=== PATIENT | female | born 1960 ===

== ENCOUNTER 2018-05-01 05:22 | Inpatient (IN) | payer OTHER ==
[2018-05-01] VITALS (20 sets, daily range): BP systolic 138–170; BP diastolic 71–92
[~2018-05-01] VITALS: Ht 170.2 cm; Wt 113.1 kg
[~2018-05-01 05:22] MED LIST: CYCLOBENZAPRINE10 MG ORAL; FUROSEMIDE20 M1 ORAL; LIPITOR40 MG ORAL; METFORMIN HCL1000 M2 ORAL; NAPROXEN500 M2 ORAL; POTASSIUM ER PO; TRAMADOL; ULTRACET TABLE1 EACH PO
--- NOTE | 2018-05-01 05:50 | NUR ---
IV LR WAS STARTED BY ZAHRA ZHANG RN. NO S/S OF INFILTRATION.
[2018-05-01] MEDS ORDERED: NeoSporin Gu Irrig 1ml Amp IRRIG ONE ×2 (06:25→06:27)
[2018-05-01] MEDS ORDERED: Bacitracin 50000 Units Vial ONE ×2 (06:25→06:27)
[2018-05-01] MEDS ORDERED: Bupivacaine 0.5% 10ml INJ ONE (06:35)
[2018-05-01] MEDS ORDERED: cloNIDine 1000mcg/10ml inj ONE (06:35)
[2018-05-01] MEDS ORDERED: EPINEPHrine 1mg/1ml Amp ONE ×3 (06:41→09:10)
[2018-05-01] MEDS ORDERED: Propofol 200mg/20ml IV ONE (06:42)
[2018-05-01] MEDS ORDERED: Dexamethasone 4mg/ml vial ONE ×3 (06:42→09:15)
[2018-05-01] MEDS ORDERED: Sodium Chloride 10ml vial INJ ONE (06:42)
[2018-05-01] MEDS ORDERED: Lidocaine 1% MPF 10mg/ml 5ml ONE (06:42)
[2018-05-01] MEDS ORDERED: Ketamine 500mg Inj ONE (06:43)
[2018-05-01] MEDS ORDERED: Tranexamic Acid 1,000 MG in NS 55 ML IVPB ONE (06:45)
--- NOTE | 2018-05-01 06:54 | Pre-Procedure Note/Attestation ---
Pre-Procedure Note/Attestation Complete Prior to Procedure Planned Procedure: left Procedure Narrative: Left total knee arthroplasty Indications for Procedure Pre-Operative Diagnosis: left knee arthritis Attestation I attest that I discussed the nature of the procedure; its benefits; risks and complications; and alternatives (and the risks and benefits of such alternatives ), prior to the procedure, with the patient (or the patient's legal assisted sales representative). I attest that, if there was a reasonable possibility of needing a blood transfusion, the patient (or the patient's legal assisted sales representative) was given the [facility] standardized written summary, pursuant to the Aidan Moreno Blood Safety Act ([place] Health and Safety Code # 1645, as amended). I attest that I re-evaluated the patient just prior to the surgery and that there has been no change in the patient's H&P, except as documented below: NONE Dragan Rogers MD May 01, 2018 06:54
[2018-05-01] MEDS ORDERED: ceFAZolin sod 1 GM in NS 55 ML IVPB ONE (07:00)
[2018-05-01] MEDS ORDERED: celeBREX 200mg Cap **SURGERY PATIENTS ONLY ORAL ONE (07:00)
[2018-05-01] MEDS ORDERED: oxyCONTIN 20mg tab ORAL ONE (07:00)
[2018-05-01] MEDS ORDERED: Midazolam 2mg/2ml Inj ONE (07:09)
[2018-05-01] MEDS ORDERED: Ropivacaine 5mg/ml Vial 30ml INJ ONE ×2 (07:23→09:10)
[2018-05-01] MEDS ORDERED: Zemuron 50mg/5ml Inj IV ONE (07:49)
[2018-05-01] MEDS ORDERED: fentaNYL 100 mcg/2 mL IV ONE ×2 (07:52→08:27)
--- NOTE | 2018-05-01 08:22 | Anethesia Preoperative Eval ---
Anesthesia Pre-op PMH/ROS General Date of Evaluation: May 01, 2018 Time of Evaluation: 06:51 Anesthesiologist: Aminata ASA Score: ASA 3 Mallampati Score Class I : Soft palate, uvula, fauces, pillars visible Class II: Soft palate, uvula, fauces visible Class III: Soft palate, base of uvula visible Class IV: Only hard plate visible Mallampati Classification: Class III Surgeon: Sue Diagnosis: L Knee Pain Surgical Procedure: L Knee Total Arthroplasty Anesthesia History: none Family History: no anesthesia problems Allergies: Coded Allergies: No Known Allergies (Unverified , 04/30/18) Medications: see eMAR Patient NPO?: Yes NPO Date: Apr 30, 2018 NPO Time: 2029 Past Medical History Cardiovascular: Reports: HTN, other - HL Pulmonary: Reports: JOSEPH Endocrine: Reports: DM Other: obesity - Morbid BMI 41 PSxH Narrative: C/S X2 Anesthesia Pre-op Phys. Exam Physician Exam Last Vital Signs Date Time Temp Pulse Resp B/P (MAP) Pulse Ox O2 Delivery O2 Flow Rate FiO2 05/01/18 05:55 97.0 67 20 138/85 (102) 97 05/01/18 05:44 Room Air Constitutional: NAD Neurologic: CN 2-12 intact Cardiovascular: RRR Respiratory: CTA Gastrointestinal: S/NT/ND Airway Exam Mallampati Score: Class III MO: limited ROM: limited Teeth: missing, intact Anesthesia Pre-op A/P Risk Assessment & Plan Assessment: ASA 3 Plan: GA, Lumbar plexus Block, Adductor Block Status Change Before Surgery: No Pre-Antibiotics Dru Grams Ancef IV Given Within 1 Hr of Incision: Yes Time Given: 07:41 Aron Coates MD May 01, 2018 08:22
--- NOTE | 2018-05-01 08:23 | Immediate Post-Op Evaluation ---
Immediate Post-Op Evalulation Immediate Post-Op Evalulation Procedure: L Knee Total Arthroplasty Date of Evaluation: May 01, 2018 Time of Evaluation: 10:17 IV Fluids: 1200 LR Blood Products: 0 Estimated Blood Loss: 75 Urinary Output: 160 Blood Pressure Systolic: 165 Blood Pressure Diastolic: 84 Pulse Rate: 95 Respiratory Rate: 16 O2 Sat by Pulse Oximetry: 100 Temperature (Fahrenheit): 97.1 Pain Score (1-10): 3 Nausea: No Vomiting: No Complications 0 Patient Status: awake, reacts, patent, extubated, none Hydration Status: adequate Dru Grams Ancef IV Given Within 1 Hr of Incision: Yes Time Given: 07:41 Aron Coates MD May 01, 2018 08:23
--- NOTE | 2018-05-01 09:48 | Brief Operative Note ---
Immediate Post Operative Note Operative Note Chief Complaint: left knee pain Pre-op Diagnosis: left knee arthritis Procedure: left total knee arthroplasty Post-op Diagnosis: same as pre-op Findings: consistent w/pre-op dx studies Surgeon: md vanessa Anime Artist: cuba olivas Anesthesiologist: md beny Anesthesia: general Specimen: yes Complications: none Condition: stable Fluids: ns Estimated Blood Loss: minimal Drains: none Implant(s) used?: Yes - Xuan Brower May 01, 2018 09:48
[2018-05-01] MEDS ORDERED: LR 1000ml 1,000 ML IVLG SCH (11:07)
[2018-05-01] MEDS ORDERED: Hydromorphone 0.5mg/0.5ml inj IVP PRN (11:15)
[2018-05-01] MEDS ORDERED: DiphenhydrAMINE 50mg/ml Inj IVP PRN (11:15)
[2018-05-01] MEDS ORDERED: fentaNYL 100 mcg/2 mL IV PRN (11:15)
[2018-05-01] MEDS ORDERED: LORazepam Inj 2mg/ml 1ml IV PRN (11:15)
[2018-05-01] MEDS ORDERED: HYDROcodone/Acetamin 7.5/325 tab ORAL PRN ×2 (11:15→13:00)
[2018-05-01] MEDS ORDERED: Meperidine 50mg/ml Inj(FOR RIGORS ONLY) IVP PRN (11:15)
[2018-05-01] MEDS ORDERED: Atropine Sulfate 0.4mg/ml inj IVP PRN (11:15)
[2018-05-01] MEDS ORDERED: Norco 5mg/325mg tab ORAL PRN (11:15)
[2018-05-01] MEDS ORDERED: Midazolam 2mg/2ml Inj IVP PRN (11:15)
[2018-05-01] MEDS ORDERED: oxyCODONE HCL/Acetaminophen 5/325mg ORAL PRN (11:15)
[2018-05-01] MEDS ORDERED: Metoclopramide 10mg/2ml Inj IVP PRN (11:15)
--- NOTE | 2018-05-01 12:00 | NUR ---
NURSE NOTES: PATIENT RECEIVED FROM PACU ON BED TO ROOM 312-1. REPORT RECEIVED VIA PHONE FROM SUSY RN. PATIENT AROUSABLE TO NAME. LLE SURGICAL SITE C/D/I WITH IMMOBILIZER ON. [facility]. ORIENTED PATIENT AND FAMILY TO ROOM. CALL LIGHT WITHIN REACH. WILL CONTINUE TO MONITOR.
[2018-05-01] MEDS ORDERED: HYDROmorphone 1mg/ml Carpuject SUBQ PRN (13:00)
--- NOTE | 2018-05-01 15:00 | Diagnostic Imaging Report ---
Indication: Postop, status post left knee arthroplasty Technique: 2 views left knee Comparison: none Findings: There is a left knee arthroplasty prosthesis in good position. Gas is seen within the soft tissues presumably retained from the surgical exposure. Impression: Postoperative left knee. No unusual features
--- NOTE | 2018-05-01 15:07 | NUR ---
P.T Note: Order for CPM set up to L knee received POD #0 at 0-60 deg. Educated patient and daughter on benefits and proper use of CPM. Audience verbalized understanding. Pt currently tolerating 0-60 well. CPM endorsed to nursing at the end of P.T shift. CPM to be removed after 4-6 hrs of use then place rolled towel under L ankle to facilitate knee extension integrity as well.
--- NOTE | 2018-05-01 15:30 | Operative Note - Dictated ---
DATE OF OPERATION: 05/01/2018 PREOPERATIVE DIAGNOSIS: Left knee end-stage arthritis with varus deformity. POSTOPERATIVE DIAGNOSIS: Left knee end-stage arthritis with varus deformity. PROCEDURE: Left total knee arthroplasty using Laxmi Triathlon System, size 4 femur, size 5 tibia, size 11 mm tibial poly insert and a 33 mm all poly patellar, all cemented. SURGEON: Dragan Rogers M.D. ASSURANCE SOURCING MANAGER: Xuan Krishna PA-C. ANESTHESIOLOGIST: Aron Coates M.D. ANESTHESIA: General LMA anesthesia combined with femoral and adductor block. ESTIMATED BLOOD LOSS: Less than 100 mL. TOURNIQUET TIME: 68 minutes. COMPLICATIONS: None. BRIEF HISTORY: The patient is a pleasant 57-year-old female, who has had ongoing left knee pain. She failed nonoperative treatment. After full discussion of risks and benefits of the surgery and complications associated with it including infection, bleeding, neurovascular complication, possibility of continued pain, possible stiffness, possibility of inability to fully extend or flex, possibility of DVT and PE, possibility of infection requiring resection arthroplasty, she opted for surgical treatment as described above. OPERATIVE PROCEDURE: The patient was brought to the operating room and was placed supine. All pressure points were well padded. Initially, spinal anesthesia was attempted. However, this was unsuccessful. Subsequently, a general LMA anesthesia was induced and a lumbar plexus block was performed. Later on, an adductor and femoral block was performed as well. The left leg was prepped and draped in the usual sterile fashion and was exsanguinated and tourniquet was inflated to 275 mmHg. Standard anterior approach was undertaken to the knee and medial parapatellar arthrotomy was performed. The soft tissues were released. The menisci and ligaments were resected. Intramedullary access into the femur was obtained and intramedullary guide was placed inside the femur. A distal femoral cut was performed in 5 degrees of valgus without any complications. Once this was done, sizing was performed and size 4 appeared to be the right size. The cutting guide was placed in about 3 degrees external rotation and the anterior, posterior, and chamfer cuts were performed without any complications. At this point, a trial femur was applied and slightly lateralized and appeared to be a perfect fit. The PEG holes were drilled. Once this was completed, care was given to the tibia. The tibial extramedullary guide was applied. The anatomical axis was recreated. The slope was recreated. The medial side of tibia was worn out significantly and therefore 2 mm was taken off the medial side. This took about 10 mm off the lateral side. At this point, the flexion-extension gap was checked and appeared to be perfect. There was great ligamentous balance and full extension and 90 degrees of flexion. Once this was completed, sizing of the tibial size were made and size 5 appeared to be the right size. This was applied in 3 degrees external rotation and the central post-drilling and punching was performed. Once this was completed, care was given to the patella. At this point, the patella everted. The patella measured 24 mm. At this point, a 10 mm freehand cut of the patella was performed and left 14 mm patella at the end. At this point, the sizing was performed and 33 mm patellar poly appeared to be the right size. PEG holes were drilled. At this point, the femoral trial, tibial trial, and patellar trial were all applied and 9 mm poly trial was placed in the knee. Range of motion was checked and there was full extension with slight hyperextension and all the way up to 110 degrees of flexion. There was good stability on the varus valgus site. At this point, trial was changed to an 11 mm poly insert and this brought the knee into full extension without hyperextension and good flexion as well as excellent stability at 30 degrees and 45 degrees of range of motion. Once this was completed, all trial components were removed. Knee was irrigated using Simpulse irrigation. The bone was dried. Cement was mixed and the tibial component, femoral component, and patella components were all cemented without any complications. Once this was completed, trialing was performed again with 9 mm and subsequently 11 mm tibial insert trial and an 11 mm appeared to be the best fit with full extension and excellent stability and full flexion. At this point, all wounds were thoroughly irrigated using copious amount of fluid. The actual 11 mm ultra cross-linked polyethylene was then applied and locked in and the stability was checked and rechecked. Once this was assured, all wounds were thoroughly irrigated again with Simpulse irrigation. The tourniquet was deflated. There was minimal bleeding. The extensor mechanism was closed using #1 Vicryl suture. The subcutaneous tissue was closed using 2-0 Vicryl suture. The skin was closed using 3-0 Monocryl suture. Dermabond was applied. The patient tolerated procedure well without complication. The patient was taken to the recovery room in stable condition. All lap counts and instrument counts were correct. Dragan Rogers M.D. DR: LACY JOB#: [id number] CC: TALI
[2018-05-01] MEDS: Docusate 100mg cap ORAL SCH ×2 (15:32→17:41)
[2018-05-01] MEDS: D5 1/2NS w/KCl 20mEq 1,000 ML IV SCH (15:33)
[2018-05-01] MEDS: ceFAZolin sod 1 GM in D5W 55 ML IV SCH ×2 (15:33→23:59)
--- NOTE | 2018-05-01 17:10 | NUR ---
NURSE NOTES: PLACED CALL TO DR. MURILLO. WILL SEE PATIENT THIS EVENING.
--- NOTE | 2018-05-01 17:58 | NUR ---
NURSE NOTES: PATIENT DOING WELL. TOLERATING CPM UP TO 60 DEGREES. DENIES PAIN. SURGICAL SITE C/D/I. CMS WNL. CALL LIGHT WITHIN REACH.
--- NOTE | 2018-05-01 19:32 | Consultation ---
History of Present Illness General Date patient seen: May 01, 2018 Time patient seen: 19:30 Present Illness Allergies: Coded Allergies: No Known Allergies (Unverified , 04/30/18) Medication History Scheduled Atorvastatin Calcium* (Lipitor*), 40 MG ORAL BEDTIME, (Reported) Cyclobenzaprine Hcl* (Flexeril*), 10 MG ORAL BID, (Reported) Furosemide* (Lasix*), 20 MG ORAL DAILY, (Reported) Metformin Hcl (Metformin Hcl Er), 1,000 MG ORAL BID, (Reported) Naproxen* (Naproxen*), 500 MG ORAL TWICE A DAY, (Reported) Tramadol Hcl/Acetaminophen (Ultracet Tablet), 2 TAB PO Q4-6 HRS, (Reported) [Potassium Er], 1 TAB PO DA, (Reported) Patient History Healthcare decision maker NOEMÍ DIAZ-DAUGHTER Resuscitation status Full Code Advanced Directive on File Review of Systems Constitutional: Reports: no symptoms Eye: Reports: no symptoms ENT: Reports: no symptoms Respiratory: Reports: no symptoms Gastrointestinal: Reports: no symptoms Physical Exam General Appearance: WD/WN, alert HEENT: no JVD Neck: non-tender Respiratory/Chest: lungs clear Cardiovascular/Chest: normal rate, regular rhythm Abdomen: soft Last 24 Hour Vital Signs Date Time Temp Pulse Resp B/P (MAP) Pulse Ox O2 Delivery O2 Flow Rate FiO2 05/01/18 16:00 97.7 76 18 148/89 (108) 96 05/01/18 14:29 98.6 89 18 156/91 (112) 98 05/01/18 13:25 98.7 98 18 157/90 (112) 98 05/01/18 12:25 97.8 81 16 157/92 (113) 99 05/01/18 12:00 Nasal Cannula 3.0 05/01/18 11:55 98.1 89 16 157/90 (112) 98 05/01/18 11:50 74 18 142/74 100 Nasal Cannula 3 05/01/18 11:40 72 17 148/72 98 Nasal Cannula 3 05/01/18 11:20 76 19 152/78 100 Nasal Cannula 3 05/01/18 11:17 73 18 143/79 100 Nasal Cannula 3 05/01/18 11:10 97.4 78 17 150/89 100 Nasal Cannula 3 05/01/18 11:00 83 20 165/76 100 Nasal Cannula 3 05/01/18 10:50 73 18 156/76 100 Nasal Cannula 3 05/01/18 10:40 78 17 151/78 100 Simple Mask 6 05/01/18 10:30 79 18 159/82 100 Simple Mask 6 05/01/18 10:25 83 17 160/83 99 Simple Mask 6 05/01/18 10:15 82 16 170/71 99 Simple Mask 6 05/01/18 10:10 88 17 159/87 99 Simple Mask 6 05/01/18 10:06 97.1 95 16 165/84 100 Simple Mask 6 05/01/18 10:06 95 16 100 05/01/18 05:55 97.0 67 20 138/85 (102) 97 05/01/18 05:44 Room Air Height (Feet): 5 Height (Inches): 7.00 Weight (Pounds): 250 Medications Current Medications Medications (Trade) Dose Ordered Sig/Ryan Route PRN Reason Start Time Stop Time Status Last Admin Dose Admin Acetaminophen (Tylenol) 650 mg Q4H PRN ORAL temp>100.2 or headache 05/01/18 13:00 05/31/18 12:59 Acetaminophen/ Hydrocodone Bitart ([place] 5/325) 2 tab Q4H PRN ORAL pain scores 4-10 05/01/18 13:00 05/08/18 12:59 Acetaminophen/ Hydrocodone Bitart ([place] 7.5/325) 1 tab Q4H PRN ORAL Mild Pain (Pain Scale 1-3) 05/01/18 13:00 05/08/18 12:59 Cefazolin Sodium 1 gm/Dextrose 55 ml @ 110 mls/hr Q8H IV 05/01/18 15:30 05/01/18 23:59 05/01/18 15:33 Celecoxib (CeleBREX) 200 mg DAILY ORAL 05/02/18 09:00 06/01/18 08:59 Dextrose/ Electrolytes 1,000 ml @ 75 mls/hr [id number] IV 05/01/18 14:00 05/31/18 13:59 05/01/18 15:33 Docusate Sodium (Colace) 100 mg THREE TIMES A DAY ORAL 05/01/18 13:00 05/31/18 12:59 05/01/18 17:41 Enoxaparin Sodium (Lovenox) 30 mg EVERY 12 HOURS SUBQ 05/01/18 21:00 05/31/18 20:59 Ferrous Sulfate (Feosol) 325 mg THREE TIMES A DAY ORAL 05/01/18 13:00 05/31/18 12:59 05/01/18 17:41 Hydromorphone HCl (Dilaudid) 1 mg Q4H PRN SUBQ Mild Pain (Pain Scale 1-3) 05/01/18 13:00 05/08/18 12:59 Hydromorphone HCl (Dilaudid) 2 mg Q3H PRN SUBQ Severe Pain (Pain Scale 7-10) 05/01/18 13:00 05/08/18 12:59 Hydromorphone HCl (Dilaudid) 2 mg Q4H PRN SUBQ Moderate Pain (Pain Scale 4-6) 05/01/18 13:00 05/08/18 12:59 Magnesium Hydroxide (Mom) 30 ml DAILYPRN PRN ORAL Constipation 05/01/18 13:00 05/31/18 12:59 Ondansetron HCl (Zofran) 4 mg Q6H PRN IVP Nausea & Vomiting 05/01/18 13:00 05/31/18 12:59 Oxycodone HCl (OxyCONTIN) 20 mg EVERY 12 HOURS ORAL 05/01/18 21:00 05/08/18 20:59 Temazepam (Restoril) 7.5 mg HSPRN PRN ORAL Insomnia 05/01/18 21:00 05/08/18 20:59 Assessment/Plan Status Narrative thisis a 57 yeart old female with hypertenison diabetes hyperlipdi is s/p total knee arthroplasty Assessment/Plan expected periopertaive blood loss monitor cbc dvt rpophyalxis perio[peratie antibiotic prophyalxis [pain control dm accucheck ada diet sliding scale resuem meds check bmp Sanju Paz MD May 01, 2018 19:32
--- NOTE | 2018-05-01 19:55 | NUR ---
HAND-OFF: Report given to BEATRIZ BA RN.
[2018-05-01] MEDS: oxyCONTIN 20mg tab ORAL SCH (21:32)
[2018-05-01] MEDS: Enoxaparin 30mg Inj SUBQ SCH (21:33)
[2018-05-01] MEDS: NovoLOG Insulin Flexpen SUBQ SCH (22:05)
[2018-05-02 00:42] VITALS: BP 142/84
[2018-05-02] MEDS: D5 1/2NS w/KCl 20mEq 1,000 ML IV SCH ×2 (03:43→17:16)
[2018-05-02 04:35] VITALS: BP 133/84
[2018-05-02] MEDS: metFORMIN 500mg tab ORAL SCH ×3 (06:22→17:16)
[2018-05-02] MEDS: NovoLOG Insulin Flexpen SUBQ SCH ×4 (06:23→20:40)
--- NOTE | 2018-05-02 07:45 | NUR ---
HAND-OFF: Report given to KRYSTINA Nance. Patient awake in bed, no s/s of acute distress.
--- NOTE | 2018-05-02 07:46 | NUR ---
NURSE NOTES: Received patient awake alert and oriented, sitting comfortably in bed. IV site at right hand, 20 gauge, infusing D5 1/2NS with 20mEq KCl. Nasal cannula at 3L/min. Bed at lowest level with 2 side rails up. Call light within reach. In no apparent distress at this time. Will continue to monitor.
[2018-05-02 08:00] VITALS: BP 137/83
--- NOTE | 2018-05-02 08:20 | Orthopedic Progress Note ---
Orthopedic - Progress Note Subjective Symptoms: improved Objective Laboratory Tests Test 05/02/18 07:12 White Blood Count Pending Red Blood Count Pending Hemoglobin Pending Hematocrit Pending Mean Corpuscular Volume Pending Mean Corpuscular Hemoglobin Pending Mean Corpuscular Hemoglobin Concent Pending Red Cell Distribution Width Pending Platelet Count Pending Mean Platelet Volume Pending Neutrophils (%) (Auto) Pending Lymphocytes (%) (Auto) Pending Monocytes (%) (Auto) Pending Eosinophils (%) (Auto) Pending Basophils (%) (Auto) Pending Last 24 Hour Vital Signs Date Time Temp Pulse Resp B/P (MAP) Pulse Ox O2 Delivery O2 Flow Rate FiO2 05/02/18 04:35 98.8 87 20 133/84 (100) 98 05/02/18 00:42 98.6 76 20 142/84 (103) 97 05/01/18 22:02 98.8 05/01/18 21:00 Nasal Cannula 3.0 05/01/18 20:47 98.8 82 19 148/88 (108) 98 05/01/18 16:00 97.7 76 18 148/89 (108) 96 05/01/18 14:29 98.6 89 18 156/91 (112) 98 05/01/18 13:25 98.7 98 18 157/90 (112) 98 05/01/18 12:25 97.8 81 16 157/92 (113) 99 05/01/18 12:00 Nasal Cannula 3.0 05/01/18 11:55 98.1 89 16 157/90 (112) 98 05/01/18 11:50 74 18 142/74 100 Nasal Cannula 3 05/01/18 11:40 72 17 148/72 98 Nasal Cannula 3 05/01/18 11:20 76 19 152/78 100 Nasal Cannula 3 05/01/18 11:17 73 18 143/79 100 Nasal Cannula 3 05/01/18 11:10 97.4 78 17 150/89 100 Nasal Cannula 3 05/01/18 11:00 83 20 165/76 100 Nasal Cannula 3 05/01/18 10:50 73 18 156/76 100 Nasal Cannula 3 05/01/18 10:40 78 17 151/78 100 Simple Mask 6 05/01/18 10:30 79 18 159/82 100 Simple Mask 6 05/01/18 10:25 83 17 160/83 99 Simple Mask 6 05/01/18 10:15 82 16 170/71 99 Simple Mask 6 05/01/18 10:10 88 17 159/87 99 Simple Mask 6 05/01/18 10:06 97.1 95 16 165/84 100 Simple Mask 6 05/01/18 10:06 95 16 100 Intake and Output 05/01/18 05/02/18 19:00 07:00 Intake Total 2017.5 ml 465 ml Output Total 190 ml Balance 1827.5 ml 465 ml Intake Oral 240 ml IV Total 2017.5 ml 225 ml Output Urine Total 160 ml Estimated Blood Loss 30 ml Laboratory Tests Test 05/02/18 07:12 White Blood Count Pending Red Blood Count Pending Hemoglobin Pending Hematocrit Pending Mean Corpuscular Volume Pending Mean Corpuscular Hemoglobin Pending Mean Corpuscular Hemoglobin Concent Pending Red Cell Distribution Width Pending Platelet Count Pending Mean Platelet Volume Pending Neutrophils (%) (Auto) Pending Lymphocytes (%) (Auto) Pending Monocytes (%) (Auto) Pending Eosinophils (%) (Auto) Pending Basophils (%) (Auto) Pending Wound: clean, dry, intact Drains: none Neuro Status: normal Vascular Status: normal Additional Comments xray excellent Assessment Post-op Diagnosis POD 1 Procedure Performed left total knee arthroplasty Plan Plan: PT, discharge plan - to SNF on Monday, other - Today's labs pending. will follow Xuan Krishna May 02, 2018 08:20
[2018-05-02 08:24] LABS: BASOPHILS % (AUTO) 0.4 % (0.0-2.0); HEMATOCRIT 37.4 % (37.0-47.0); HEMOGLOBIN 12.3 G/DL (12.0-16.0); LYMPHOCYTES % (AUTO) 16.5 % (20.0-45.0); MEAN CORPUSCULAR VOLUME 99 FL (80-99); MONOCYTES % (AUTO) 9.5 % (1.0-10.0); NEUTROPHILS % (AUTO) 73.6 % (45.0-75.0); PLATELET COUNT 255 K/UL (150-450); RED BLOOD COUNT 3.76 M/UL (4.20-5.40); RED CELL DISTRIBUTION WIDTH 13.8 % (11.6-14.8); WHITE BLOOD COUNT 17.9 K/UL (4.8-10.8)
[2018-05-02] MEDS: Enoxaparin 30mg Inj SUBQ SCH ×2 (08:49→20:41)
[2018-05-02] MEDS: Docusate 100mg cap ORAL SCH ×3 (08:50→17:16)
[2018-05-02] MEDS: celeBREX 200mg Cap **SURGERY PATIENTS ONLY ORAL SCH (08:50)
[2018-05-02] MEDS: oxyCONTIN 20mg tab ORAL SCH ×2 (08:50→22:09)
--- NOTE | 2018-05-02 09:28 | 48 Hour Post Anesthesia Eval ---
Post Anesthesia Evaluation Procedure: L Knee Total Arthroplasty Date of Evaluation: May 02, 2018 Airway: patent Nausea: No Vomiting: No Pain Intensity: 0 Hydration Status: adequate Cardiopulmonary Status: at baseline Mental Status/LOC: patient returned to baseline Post-Anesthesia Complications: 0 Follow-up care needed: N/A - further care as per primary team Jennifer Burt MD May 02, 2018 09:28
[2018-05-02] MEDS ORDERED: Tubing IV Secondary IV ONE (11:00)
--- NOTE | 2018-05-02 11:45 | NUR ---
P.T Note: P.T evaluation completed and treatment initiated per TKR protocol. Please refer to P.T evaluation for current functional status. Skilled P.T service is warranted to improve L knee ROM, strength, safety and mobility independence following TKR. Recommend FWW, 3 n 1 commode and SNF for short term rehab. at [place]. Thank you for this referral.
[2018-05-02 11:49] VITALS: BP 138/81
[2018-05-02] MEDS: Norco 5mg/325mg tab ORAL PRN (15:10)
[2018-05-02 16:00] VITALS: BP 141/80
--- NOTE | 2018-05-02 19:37 | NUR ---
HAND-OFF: Report given to KRYSTINA Quiñones.
--- NOTE | 2018-05-02 19:37 | NUR ---
HAND-OFF: Report given to KRYSTINA Blanton.
[2018-05-02 20:00] VITALS: BP 151/78
--- NOTE | 2018-05-02 20:00 | NUR ---
NURSE NOTES: Patient received in bed, awake oriented. C/o pain but refused to take PRN pain medications. Per patient, only oxycontin works (as scheduled). On CPM machine 0-60 tolerating well. L knee dressing dry and intact. IV is intact and patent. Call light in reach. Will continue to monitor.
--- NOTE | 2018-05-02 20:15 | NUR ---
NURSE NOTES: Patient offered ice pack, patient refused at this time. Will reattempt.
--- NOTE | 2018-05-02 20:30 | NUR ---
NURSE NOTES: Patient noted with 100.7 oral temp, tylenol to be administered. Will continue to monitor.
--- NOTE | 2018-05-02 20:32 | NUR ---
CASE MANAGEMENT: REVIEW 57/F DIRECT ADMIT FROM HOME CC: LEFT KNEE PAIN SI: LEFT KNEE ARTHRITIS LEFT KNEE TOTAL ARTHROPLASTY 05/01 T 97.1 HR 95 RR 16 BP 165/84 SAT 100% SIMPLE MASK 6.0 IS: VERSED IV X1 DURACLON X1 NEOMYCIN IRRIG X1 ANCEF IV X1 CELEBREX PO X1 OXYCONTIN PO X1 PATIENT ADMITTED TO MED/SURG 05/01/2018 DCP: PATIENT IS FROM HOME
--- NOTE | 2018-05-02 21:40 | NUR ---
NURSE NOTES: Patient assisted to ambulate to the bathroom with walker. Offered to place knee immobilizer to patient when ambulating but patient refused, stating that she ambulated earlier in AM without the immobilizer. Explained importance but patient still refused. Patient assisted back to bed safely after voiding.
[2018-05-03] VITALS: BP 165/83
[2018-05-03 04:00] VITALS: BP 148/81
[2018-05-03] MEDS: D5 1/2NS w/KCl 20mEq 1,000 ML IV SCH (06:07)
[2018-05-03] MEDS: metFORMIN 500mg tab ORAL SCH ×3 (06:07→17:16)
[2018-05-03] MEDS: NovoLOG Insulin Flexpen SUBQ SCH ×4 (06:09→20:03)
--- NOTE | 2018-05-03 07:13 | NUR ---
HAND-OFF: Report given to Hawa Hernandez RN.
[2018-05-03 07:18] LABS: BASOPHILS % (AUTO) 0.7 % (0.0-2.0); EOSINOPHILS % (AUTO) 0.1 % (0.0-3.0); HEMATOCRIT 33.8 % (37.0-47.0); HEMOGLOBIN 11.2 G/DL (12.0-16.0); LYMPHOCYTES % (AUTO) 15.5 % (20.0-45.0); MEAN CORPUSCULAR VOLUME 99 FL (80-99); MONOCYTES % (AUTO) 10.2 % (1.0-10.0); NEUTROPHILS % (AUTO) 73.6 % (45.0-75.0); PLATELET COUNT 207 K/UL (150-450); RED BLOOD COUNT 3.42 M/UL (4.20-5.40); RED CELL DISTRIBUTION WIDTH 13.8 % (11.6-14.8); WHITE BLOOD COUNT 11.7 K/UL (4.8-10.8)
--- NOTE | 2018-05-03 07:40 | NUR ---
NURSE NOTES: Pt in bed a/o x 4 in no acute distress. Pt c/o pain to L knee 11/10. Left knee has dressing, STEPHAN wrap and compression stocking in place. Dressing D/C/I. Left pedal pulses 2+, pt has intact sensation to left LE, able to wiggle toes and flex foot. Patent IV to R hand. Pt left in bed in low position, call light within reach, bed locked, ice pack to left knee. Discussed pain management plan for today. Will continue to monitor.
[2018-05-03 08:00] VITALS: BP 147/80
[2018-05-03] MEDS: oxyCONTIN 20mg tab ORAL SCH ×3 (08:11→17:17)
[2018-05-03] MEDS: celeBREX 200mg Cap **SURGERY PATIENTS ONLY ORAL SCH (08:11)
[2018-05-03] MEDS: Docusate 100mg cap ORAL SCH ×3 (08:12→17:16)
[2018-05-03] MEDS: Enoxaparin 30mg Inj SUBQ SCH ×2 (08:15→20:04)
--- NOTE | 2018-05-03 08:26 | Orthopedic Progress Note ---
Orthopedic - Progress Note Subjective Symptoms: c/o post-op knee pain Additional Comments patient has some nausea. Controlled with Zofran. Objective Last 24 Hour Vital Signs Date Time Temp Pulse Resp B/P (MAP) Pulse Ox O2 Delivery O2 Flow Rate FiO2 05/03/18 04:00 99.0 98 18 148/81 (103) 95 05/03/18 00:00 99.6 89 18 165/83 (110) 96 05/02/18 21:21 99.9 05/02/18 21:00 Room Air 05/02/18 20:00 100.7 92 19 151/78 (102) 96 05/02/18 16:00 97.8 81 20 141/80 (100) 98 05/02/18 15:40 99.0 05/02/18 11:49 99.0 72 19 138/81 (100) 97 05/02/18 11:15 98.8 05/02/18 09:20 98.8 05/02/18 09:00 Nasal Cannula 3.0 Intake and Output 05/02/18 05/03/18 19:00 07:00 Intake Total 435 ml 1185 ml Output Total 400 ml Balance 35 ml 1185 ml Intake Oral 360 ml 360 ml IV Total 75 ml 825 ml Output Urine Total 400 ml # Voids 1 2 Laboratory Tests Test 05/03/18 05:35 White Blood Count 11.7 K/UL (4.8-10.8) H Red Blood Count 3.42 M/UL (4.20-5.40) L Hemoglobin 11.2 G/DL (12.0-16.0) L Hematocrit 33.8 % (37.0-47.0) L Mean Corpuscular Volume 99 FL (80-99) Mean Corpuscular Hemoglobin 32.8 PG (27.0-31.0) H Mean Corpuscular Hemoglobin Concent 33.2 G/DL (32.0-36.0) Red Cell Distribution Width 13.8 % (11.6-14.8) Platelet Count 207 K/UL (150-450) Mean Platelet Volume 7.6 FL (6.5-10.1) Neutrophils (%) (Auto) 73.6 % (45.0-75.0) Lymphocytes (%) (Auto) 15.5 % (20.0-45.0) L Monocytes (%) (Auto) 10.2 % (1.0-10.0) H Eosinophils (%) (Auto) 0.1 % (0.0-3.0) Basophils (%) (Auto) 0.7 % (0.0-2.0) Wound: clean, dry, intact Drains: none Neuro Status: normal Vascular Status: normal Assessment Post-op Diagnosis POD#2 s/p Left TKA Plan Plan: PT, pain management, discharge plan Additional Comments dressing Changes today D/C IV fluids. Approved for transfer tomorrow. Dragan Rogers MD May 03, 2018 08:26
--- NOTE | 2018-05-03 08:33 | NUR ---
Dr. Montano in to see pt today, gave new orders to DC fluids and change dressing change today, refer to orders.
[2018-05-03 12:09] VITALS: BP 140/87
[2018-05-03 15:48] VITALS: BP 148/82
--- NOTE | 2018-05-03 16:00 | NUR ---
@1205 pedal pulses 2+, intact sensation, pt able to flex foot and wiggle toes, warm extremity. @1600 pedal pulses 2+, intact sensation, pt able to flex foot/wiggle toes, extremity is warm.
--- NOTE | 2018-05-03 18:16 | NUR ---
WARP TYING MACHINE TENDER NOTES SPOKE WITH [employer] NOT CONTRACTED WITH [facility]. RECEIVED CONTRACTED LIST. FAXED INQUIRY WILL FOLLOW UP IN AM.
--- NOTE | 2018-05-03 18:52 | NUR ---
Notified Dr. Paz of pts temp 101.0 PO, initially 100.8 PO. Gave Tylenol 650mg + cooling measures with no success to bring down temperature. Received new orders from , will implement. Refer to orders.
--- NOTE | 2018-05-03 19:15 | NUR ---
NURSE NOTES: Report given to Yovana RN, pt a/o x 4. Pt left in bed in low position, call light within reach, skid socks on, ice packs under axillas and back in place. Left knee has ice packs at site, walker at bedside.
--- NOTE | 2018-05-03 19:40 | NUR ---
NURSE NOTES: Received report from KRYSTINA Ruth.
[2018-05-03 20:00] VITALS: BP 154/83
[2018-05-03] MEDS: Norco 5mg/325mg tab ORAL PRN (20:01)
--- NOTE | 2018-05-03 21:01 | Cardiology Progress Note ---
Assessment/Plan Status Narrative patient is s/p toatl knee arthroplasty denies nacy ches tpain otr sob has 30 stairs at home Assessment/Plan s/p tkr perioperative blood loss postop dvt prophyalxis had antibiotic prophyalxis paincontrol monitor le pt ot dc planning to go to e[facility]. Subjective Cardiovascular: Reports: no symptoms Respiratory: Reports: no symptoms Gastrointestinal/Abdominal: Reports: no symptoms Objective Last 24 Hour Vital Signs Date Time Temp Pulse Resp B/P (MAP) Pulse Ox O2 Delivery O2 Flow Rate FiO2 05/03/18 17:47 100.8 05/03/18 16:45 101.0 05/03/18 16:25 100.3 05/03/18 16:15 100.2 05/03/18 15:48 100.8 89 18 148/82 (104) 98 05/03/18 12:09 99.2 95 19 140/87 (104) 97 05/03/18 09:00 Room Air 05/03/18 08:00 100.2 91 19 147/80 (102) 96 05/03/18 04:00 99.0 98 18 148/81 (103) 95 05/03/18 00:00 99.6 89 18 165/83 (110) 96 05/02/18 21:00 Room Air General Appearance: WD/WN EENT: PERRL/EOMI Neck: no JVD Cardiovascular: normal rate, regular rhythm Respiratory/Chest: lungs clear Abdomen: soft, no organomegaly Intake and Output 05/02/18 05/03/18 19:00 07:00 Intake Total 435 ml 1185 ml Output Total 400 ml Balance 35 ml 1185 ml Intake Oral 360 ml 360 ml IV Total 75 ml 825 ml Output Urine Total 400 ml # Voids 1 2 Laboratory Tests Test 05/03/18 05:35 White Blood Count 11.7 K/UL (4.8-10.8) H Red Blood Count 3.42 M/UL (4.20-5.40) L Hemoglobin 11.2 G/DL (12.0-16.0) L Hematocrit 33.8 % (37.0-47.0) L Mean Corpuscular Volume 99 FL (80-99) Mean Corpuscular Hemoglobin 32.8 PG (27.0-31.0) H Mean Corpuscular Hemoglobin Concent 33.2 G/DL (32.0-36.0) Red Cell Distribution Width 13.8 % (11.6-14.8) Platelet Count 207 K/UL (150-450) Mean Platelet Volume 7.6 FL (6.5-10.1) Neutrophils (%) (Auto) 73.6 % (45.0-75.0) Lymphocytes (%) (Auto) 15.5 % (20.0-45.0) L Monocytes (%) (Auto) 10.2 % (1.0-10.0) H Eosinophils (%) (Auto) 0.1 % (0.0-3.0) Basophils (%) (Auto) 0.7 % (0.0-2.0) Microbiology Date/Time Source Procedure Growth Status 05/01/18 06:00 Nasal Nares MRSA Culture - Final NO METHICILLIN RESISTANT STAPH AUREUS... Complete Sanju Paz MD May 03, 2018 21:01
--- NOTE | 2018-05-03 21:32 | NUR ---
NURSE NOTES: Patient in bed, aox4. VSS, no shortness of breath. [place] given for pain of 7/10. Left leg dressing clean, dry, intact. IV site intact and patent. Due meds given, needs attended to. Bed low, call light within reach.
--- NOTE | 2018-05-03 22:25 | NUR ---
NURSE NOTES: urine sample collected, sent to lab.
[2018-05-03 23:58] LABS: BILIRUBIN, URINE NEGATIVE (NEGATIVE); COLOR,URINE PALE YELLOW; GLUCOSE, URINE (UA) NEGATIVE (NEGATIVE); KETONES,URINE NEGATIVE (NEGATIVE); NITRITE,URINE NEGATIVE (NEGATIVE); PH,URINE 6 (4.5-8.0); PROTEIN,URINE 2+ (NEGATIVE); UROBILINOGEN,URINE NORMAL MG/DL (0.0-1.0)
[2018-05-04] VITALS: BP 148/82
[2018-05-04 00:17] LABS: APPEARANCE,URINE SLIGHTLY CLOUDY; LEUKOCYTE ESTERASE ,URINE 2+ (NEGATIVE)
[2018-05-04 04:00] VITALS: BP 150/94
[2018-05-04] MEDS: metFORMIN 500mg tab ORAL SCH ×3 (06:39→16:46)
[2018-05-04] MEDS: Norco 5mg/325mg tab ORAL PRN ×2 (06:39→21:08)
[2018-05-04] MEDS: NovoLOG Insulin Flexpen SUBQ SCH ×4 (06:40→21:08)
[2018-05-04 07:04] LABS: BASOPHILS % (AUTO) 0.7 % (0.0-2.0); EOSINOPHILS % (AUTO) 1.4 % (0.0-3.0); HEMATOCRIT 33.9 % (37.0-47.0); HEMOGLOBIN 11.2 G/DL (12.0-16.0); LYMPHOCYTES % (AUTO) 17.5 % (20.0-45.0); MEAN CORPUSCULAR VOLUME 98 FL (80-99); MONOCYTES % (AUTO) 9.6 % (1.0-10.0); NEUTROPHILS % (AUTO) 70.8 % (45.0-75.0); PLATELET COUNT 221 K/UL (150-450); RED BLOOD COUNT 3.45 M/UL (4.20-5.40); RED CELL DISTRIBUTION WIDTH 13.7 % (11.6-14.8); WHITE BLOOD COUNT 10.4 K/UL (4.8-10.8)
--- NOTE | 2018-05-04 07:49 | NUR ---
NURSE NOTES: Pt in bed a/o x 4 in no acute distress. Patent RAC IV SL. Left knee has dressing in place, STEPHAN bandage, and compression hose up to thigh, site D/C/I. Left foot pedal pulses 2+, sensation intact, pt able to flex foot and wiggle toes. Pt c/o 7/10 pain to left knee. Discussed with pt pain management control plan, medications, and discharge plan to rehab facility, board updated. Pt left in bed in low position, call light within reach, skid socks on, walker at bedside, bed locked, right leg SCD on. Will continue to monitor.
--- NOTE | 2018-05-04 07:52 | NUR ---
HAND-OFF: Report given to KRYSTINA Ruth. Patient stable.
[2018-05-04 07:59] VITALS: BP 144/81
--- NOTE | 2018-05-04 08:04 | Orthopedic Progress Note ---
Orthopedic - Progress Note Subjective Symptoms: improved Objective Laboratory Tests Test 05/03/18 22:00 05/04/18 05:35 Urine Color Pale yellow Urine Appearance Slightly cloudy Urine pH 6 (4.5-8.0) Urine Specific [place] 1.010 (1.005-1.035) Urine Protein 2+ (NEGATIVE) H Urine Glucose (UA) Negative (NEGATIVE) Urine Ketones Negative (NEGATIVE) Urine Blood 2+ (NEGATIVE) H Urine Nitrite Negative (NEGATIVE) Urine Bilirubin Negative (NEGATIVE) Urine Urobilinogen Normal MG/DL (0.0-1.0) Urine Leukocyte Esterase 2+ (NEGATIVE) H Urine RBC 5-10 /HPF (0 - 2) H Urine WBC 30-40 /HPF (0 - 2) H Urine Squamous Epithelial Cells Many /LPF (NONE/OCC) H Urine Bacteria Moderate /HPF (NONE) H Urine Yeast Many /HPF (NONE) H White Blood Count 10.4 K/UL (4.8-10.8) Red Blood Count 3.45 M/UL (4.20-5.40) L Hemoglobin 11.2 G/DL (12.0-16.0) L Hematocrit 33.9 % (37.0-47.0) L Mean Corpuscular Volume 98 FL (80-99) Mean Corpuscular Hemoglobin 32.3 PG (27.0-31.0) H Mean Corpuscular Hemoglobin Concent 32.8 G/DL (32.0-36.0) Red Cell Distribution Width 13.7 % (11.6-14.8) Platelet Count 221 K/UL (150-450) Mean Platelet Volume 8.4 FL (6.5-10.1) Neutrophils (%) (Auto) 70.8 % (45.0-75.0) Lymphocytes (%) (Auto) 17.5 % (20.0-45.0) L Monocytes (%) (Auto) 9.6 % (1.0-10.0) Eosinophils (%) (Auto) 1.4 % (0.0-3.0) Basophils (%) (Auto) 0.7 % (0.0-2.0) Last 24 Hour Vital Signs Date Time Temp Pulse Resp B/P (MAP) Pulse Ox O2 Delivery O2 Flow Rate FiO2 05/04/18 07:59 99.2 74 18 144/81 (102) 99 2/1/19 04:00 99.1 94 18 150/94 (112) 98 05/04/18 00:00 98.9 93 18 148/82 (104) 94 05/03/18 21:00 Room Air 05/03/18 20:00 99.2 93 18 154/83 (106) 96 05/03/18 19:39 99.2 05/03/18 17:47 100.8 05/03/18 16:45 101.0 05/03/18 16:25 100.3 05/03/18 16:15 100.2 05/03/18 15:48 100.8 89 18 148/82 (104) 98 05/03/18 12:09 99.2 95 19 140/87 (104) 97 05/03/18 09:00 Room Air Intake and Output 05/03/18 05/04/18 18:59 06:59 Intake Total 680 ml Balance 680 ml Intake Oral 680 ml # Voids 3 2 Laboratory Tests Test 05/03/18 22:00 05/04/18 05:35 Urine Color Pale yellow Urine Appearance Slightly cloudy Urine pH 6 (4.5-8.0) Urine Specific [place] 1.010 (1.005-1.035) Urine Protein 2+ (NEGATIVE) H Urine Glucose (UA) Negative (NEGATIVE) Urine Ketones Negative (NEGATIVE) Urine Blood 2+ (NEGATIVE) H Urine Nitrite Negative (NEGATIVE) Urine Bilirubin Negative (NEGATIVE) Urine Urobilinogen Normal MG/DL (0.0-1.0) Urine Leukocyte Esterase 2+ (NEGATIVE) H Urine RBC 5-10 /HPF (0 - 2) H Urine WBC 30-40 /HPF (0 - 2) H Urine Squamous Epithelial Cells Many /LPF (NONE/OCC) H Urine Bacteria Moderate /HPF (NONE) H Urine Yeast Many /HPF (NONE) H White Blood Count 10.4 K/UL (4.8-10.8) Red Blood Count 3.45 M/UL (4.20-5.40) L Hemoglobin 11.2 G/DL (12.0-16.0) L Hematocrit 33.9 % (37.0-47.0) L Mean Corpuscular Volume 98 FL (80-99) Mean Corpuscular Hemoglobin 32.3 PG (27.0-31.0) H Mean Corpuscular Hemoglobin Concent 32.8 G/DL (32.0-36.0) Red Cell Distribution Width 13.7 % (11.6-14.8) Platelet Count 221 K/UL (150-450) Mean Platelet Volume 8.4 FL (6.5-10.1) Neutrophils (%) (Auto) 70.8 % (45.0-75.0) Lymphocytes (%) (Auto) 17.5 % (20.0-45.0) L Monocytes (%) (Auto) 9.6 % (1.0-10.0) Eosinophils (%) (Auto) 1.4 % (0.0-3.0) Basophils (%) (Auto) 0.7 % (0.0-2.0) Wound: clean, dry, intact Drains: none Neuro Status: normal Vascular Status: normal Assessment Post-op Diagnosis POD 3 Procedure Performed left total knee arthroplasty Plan Plan: discharge plan - to SNF today. f/u 7-10 days outpt Xuan Krishna May 04, 2018 08:04
--- NOTE | 2018-05-04 08:05 | Discharge Summary ---
Discharge Summary Hospital Course Date of Admission May 01, 2018 at 05:22 Date of Discharge 05/04/18 Admitting Diagnosis left knee arthritis Reason for Hospitalization: s/p left tka HPI Kitty M Janice Oneal is a 57 year old female who was admitted on May 01, 2018 at 05 :22 for Traumatic Arthropathy Left Knee Consultations MD Jackson Procedures left tka Hospital Course benign Discharge Condition Upon Discharge: improving, stable Discharge Disposition Patient was discharged to SNF Xuan Krishna May 04, 2018 08:05
[2018-05-04] MEDS: Enoxaparin 30mg Inj SUBQ SCH ×2 (08:24→21:09)
[2018-05-04] MEDS: oxyCONTIN 20mg tab ORAL SCH ×3 (08:25→18:22)
[2018-05-04] MEDS: celeBREX 200mg Cap **SURGERY PATIENTS ONLY ORAL SCH (08:25)
[2018-05-04] MEDS: Docusate 100mg cap ORAL SCH ×3 (08:25→18:21)
--- NOTE | 2018-05-04 09:11 | Consultation ---
History of Present Illness General Date patient seen: May 04, 2018 Time patient seen: 09:10 Present Illness Allergies: Coded Allergies: No Known Allergies (Unverified , 04/30/18) Medication History Scheduled Atorvastatin Calcium* (Lipitor*), 40 MG ORAL BEDTIME, (Reported) Cyclobenzaprine Hcl* (Flexeril*), 10 MG ORAL BID, (Reported) Furosemide* (Lasix*), 20 MG ORAL DAILY, (Reported) Metformin Hcl (Metformin Hcl Er), 1,000 MG ORAL BID, (Reported) Naproxen* (Naproxen*), 500 MG ORAL TWICE A DAY, (Reported) Tramadol Hcl/Acetaminophen (Ultracet Tablet), 2 TAB PO Q4-6 HRS, (Reported) [Potassium Er], 1 TAB PO DA, (Reported) Patient History Healthcare decision maker NOEMÍ DIAZ-DAUGHTER Resuscitation status Full Code Advanced Directive on File Review of Systems Constitutional: Reports: no symptoms Eye: Reports: no symptoms ENT: Reports: no symptoms ROS Narrative meléndez ssknee pain atakingf oxyvcomntin Physical Exam General Appearance: WD/WN HEENT: PERRL Neck: supple Respiratory/Chest: lungs clear Cardiovascular/Chest: normal rate, regular rhythm, no JVD Abdomen: soft Last 24 Hour Vital Signs Date Time Temp Pulse Resp B/P (MAP) Pulse Ox O2 Delivery O2 Flow Rate FiO2 05/04/18 07:59 99.2 74 18 144/81 (102) 99 05/04/18 04:00 99.1 94 18 150/94 (112) 98 05/04/18 00:00 98.9 93 18 148/82 (104) 94 05/03/18 21:00 Room Air 05/03/18 20:00 99.2 93 18 154/83 (106) 96 05/03/18 19:39 99.2 05/03/18 17:47 100.8 05/03/18 16:45 101.0 05/03/18 16:25 100.3 05/03/18 16:15 100.2 05/03/18 15:48 100.8 89 18 148/82 (104) 98 05/03/18 12:09 99.2 95 19 140/87 (104) 97 Intake and Output 05/03/18 05/04/18 18:59 06:59 Intake Total 680 ml Balance 680 ml Intake Oral 680 ml # Voids 3 2 Laboratory Tests Test 05/03/18 22:00 05/04/18 05:35 Urine Color Pale yellow Urine Appearance Slightly cloudy Urine pH 6 (4.5-8.0) Urine Specific [place] 1.010 (1.005-1.035) Urine Protein 2+ (NEGATIVE) H Urine Glucose (UA) Negative (NEGATIVE) Urine Ketones Negative (NEGATIVE) Urine Blood 2+ (NEGATIVE) H Urine Nitrite Negative (NEGATIVE) Urine Bilirubin Negative (NEGATIVE) Urine Urobilinogen Normal MG/DL (0.0-1.0) Urine Leukocyte Esterase 2+ (NEGATIVE) H Urine RBC 5-10 /HPF (0 - 2) H Urine WBC 30-40 /HPF (0 - 2) H Urine Squamous Epithelial Cells Many /LPF (NONE/OCC) H Urine Bacteria Moderate /HPF (NONE) H Urine Yeast Many /HPF (NONE) H White Blood Count 10.4 K/UL (4.8-10.8) Red Blood Count 3.45 M/UL (4.20-5.40) L Hemoglobin 11.2 G/DL (12.0-16.0) L Hematocrit 33.9 % (37.0-47.0) L Mean Corpuscular Volume 98 FL (80-99) Mean Corpuscular Hemoglobin 32.3 PG (27.0-31.0) H Mean Corpuscular Hemoglobin Concent 32.8 G/DL (32.0-36.0) Red Cell Distribution Width 13.7 % (11.6-14.8) Platelet Count 221 K/UL (150-450) Mean Platelet Volume 8.4 FL (6.5-10.1) Neutrophils (%) (Auto) 70.8 % (45.0-75.0) Lymphocytes (%) (Auto) 17.5 % (20.0-45.0) L Monocytes (%) (Auto) 9.6 % (1.0-10.0) Eosinophils (%) (Auto) 1.4 % (0.0-3.0) Basophils (%) (Auto) 0.7 % (0.0-2.0) Height (Feet): 5 Height (Inches): 7.00 Weight (Pounds): 249 Medications Current Medications Medications (Trade) Dose Ordered Sig/Ryan Route PRN Reason Start Time Stop Time Status Last Admin Dose Admin Acetaminophen (Tylenol) 650 mg Q4H PRN ORAL temp>100.2 or headache 05/01/18 13:00 05/31/18 12:59 05/03/18 15:49 Acetaminophen/ Hydrocodone Bitart ([place] 5/325) 2 tab Q4H PRN ORAL pain scores 4-10 05/01/18 13:00 05/08/18 12:59 05/04/18 06:39 Acetaminophen/ Hydrocodone Bitart ([place] 7.5/325) 1 tab Q4H PRN ORAL Mild Pain (Pain Scale 1-3) 05/01/18 13:00 05/08/18 12:59 Celecoxib (CeleBREX) 200 mg DAILY ORAL 05/02/18 09:00 06/01/18 08:59 05/04/18 08:25 Dextrose (Dextrose 50%) 25 ml Q30M PRN IV Hypoglycemia 05/01/18 20:45 05/31/18 20:44 Dextrose (Dextrose 50%) 50 ml Q30M PRN IV Hypoglycemia 05/01/18 20:45 05/31/18 20:44 Docusate Sodium (Colace) 100 mg THREE TIMES A DAY ORAL 05/01/18 13:00 05/31/18 12:59 05/04/18 08:25 Enoxaparin Sodium (Lovenox) 30 mg EVERY 12 HOURS SUBQ 05/01/18 21:00 05/31/18 20:59 05/04/18 08:24 Ferrous Sulfate (Feosol) 325 mg THREE TIMES A DAY ORAL 05/01/18 13:00 05/31/18 12:59 05/04/18 08:25 Hydromorphone HCl (Dilaudid) 1 mg Q4H PRN SUBQ Mild Pain (Pain Scale 1-3) 05/01/18 13:00 05/08/18 12:59 Hydromorphone HCl (Dilaudid) 2 mg Q3H PRN SUBQ Severe Pain (Pain Scale 7-10) 05/01/18 13:00 05/08/18 12:59 05/02/18 10:45 Hydromorphone HCl (Dilaudid) 2 mg Q4H PRN SUBQ Moderate Pain (Pain Scale 4-6) 05/01/18 13:00 05/08/18 12:59 Insulin Aspart (NovoLOG) AC+HS SUBQ 05/01/18 21:00 05/31/18 20:59 05/04/18 06:40 Magnesium Hydroxide (Mom) 30 ml DAILYPRN PRN ORAL Constipation 05/01/18 13:00 05/31/18 12:59 Metformin HCl (Glucophage) 500 mg TIAC ORAL 05/02/18 06:30 06/01/18 06:29 05/04/18 06:39 Ondansetron HCl (Zofran) 4 mg Q6H PRN IVP Nausea & Vomiting 05/01/18 13:00 05/31/18 12:59 05/04/18 06:40 Oxycodone HCl (OxyCONTIN) 20 mg TID ORAL 05/02/18 22:00 05/09/18 21:59 05/04/18 08:25 Temazepam (Restoril) 7.5 mg HSPRN PRN ORAL Insomnia 05/01/18 21:00 05/08/18 20:59 Assessment/Plan Status Narrative patient is s/p toatl knee arthroplasty doing well pt ot dvt priophyalxis on painmedi cainota Assessment/Plan dc to ecf will monitor cedrickley discussed withpatient at Sanju Daugherty MD May 04, 2018 09:11
[2018-05-04] MEDS ORDERED: OXYCONTIN15 MG ORAL (09:15)
[2018-05-04] MEDS ORDERED: NOVOLOG100 UNITS1 SQ (09:17)
--- NOTE | 2018-05-04 09:30 | NUR ---
NURSE NOTES: Dr. Paz came in to see the patient this am. Per MD patient to continue at SNF total of 13 days of Lovenox 30mg SQ Q12 hours, Oxycontin 20mg TID, resume home meds except Naproxen. Pt to continue using Novolog with regular sliding scale. Orders read back to MD, refer to orders.
[2018-05-04] MEDS ORDERED: LOVENOX30 MG/0.3 SQ (10:20)
--- NOTE | 2018-05-04 11:13 | Diagnostic Imaging Report ---
Indication: Cough and fever Technique: One view of the chest Comparison: none Findings: Than due to subsegmental atelectasis is seen in the left midlung. Lungs and pleural spaces otherwise clear. Normal heart size Impression: No acute process Findings discussed by phone with patient's nurse at the time of interpretation
--- NOTE | 2018-05-04 11:33 | NUR ---
*-* DISCHARGE PLANNING *-* PATIENT HAS EZ REFERRED TO: [facility] P:[phone] F:[phone]
[2018-05-04 12:00] VITALS: BP 137/82
--- NOTE | 2018-05-04 14:41 | NUR ---
NURSE NOTES: Pt ambulated with nurse approx 35 steps, steady gait, stand by assist. CPM has been of from [id number] at 65, pt tolerating well. 1200 pedal pulses 2+, intact sensation, able to wiggle toes and flex foot. Dressing in place, D/C/I, STEPHAN bandage in place, knee high compression stocking in place. Pt continuously encouraged to TCDB, and use IS. Currently pt up to 1999 on the IS, reinforced to use IS 10 X's per hour. Pt verbalized understanding.
[2018-05-04 16:00] VITALS: BP 139/90
--- NOTE | 2018-05-04 16:14 | NUR ---
BOTTLE SORTERSWIFT TENDER SPOKE WITH ALEX FROM [facility], PT DECLINED BY INSURANCE DUE TO FACILITY BEING LTACH. SPOKE WITH DUKE MILLAN FROM [facility] EXPLAINED TO DUKE, [facility] WAS ON THE LIST SHE PROVIDED FOR REHAB. PER DUKE SHE THOUGHT IT WAS A SNF. PLACED CALL TO [facility], FACILITY IS A SUB ACUTE AND LTACH. INQUIRY FAXED TO [facility], [facility] AND [facility].
--- NOTE | 2018-05-04 19:06 | NUR ---
HAND-OFF: Report given to KRYSTINA Yen. Pt left in chair in no acute distress, with daughter at bedside, IS and walker at bedside. Circulation, sensation intact. Pt has skid socks on, call light within reach.
--- NOTE | 2018-05-04 19:14 | NUR ---
late entry: Kept [place] 5/325 x 2 at nurses eye sight the entire time. Attempted to administer and system would not allow given pt had exceeded 3G in 24 hours. Medication kept with nurse to see if the system would allow within the next 30-45 min. System did not allow administration, nurse returned to tablets to [facility].
[2018-05-04 20:00] VITALS: BP 148/85
--- NOTE | 2018-05-04 21:54 | NUR ---
NURSE NOTES: Patient aaox4. VSS, no shortness of breath. Wil[place] 5 mg 2 tab given for pain of 7/10 left knee. IV site patent. Dressing clean dry intact. Family at bedside. Due meds given, ice pack to knee, family at bedside. Bed low, call light within reach.
[2018-05-05] VITALS: BP 126/81
[2018-05-05 04:00] VITALS: BP 133/89
[2018-05-05] MEDS: NovoLOG Insulin Flexpen SUBQ SCH ×4 (06:40→20:11)
[2018-05-05] MEDS: metFORMIN 500mg tab ORAL SCH ×3 (06:41→17:00)
--- NOTE | 2018-05-05 07:26 | NUR ---
HAND-OFF: Report given to KRYSTINA Shaikh. Patient stable.
--- NOTE | 2018-05-05 07:30 | NUR ---
NURSE NOTES: Received report from Heaven FLAHERTY. On rounds patient is awake alert and oriented x4, in bed. No s/s acute distress noted. ANKUSH hose and SCD's in place. Left knee dressing assessed c/d/i. Patient reporting mild pain in left knee, not requesting pain medication at this time. Patient encouraged to use IS while awake. Side rails upx2, bed low and locked, call light in reach. Will continue to monitor.
[2018-05-05 08:00] VITALS: BP 147/86
[2018-05-05] MEDS: celeBREX 200mg Cap **SURGERY PATIENTS ONLY ORAL SCH (08:23)
[2018-05-05] MEDS: Docusate 100mg cap ORAL SCH ×3 (08:23→17:43)
[2018-05-05] MEDS: oxyCONTIN 20mg tab ORAL SCH ×3 (08:24→17:44)
[2018-05-05] MEDS: Enoxaparin 30mg Inj SUBQ SCH ×2 (08:25→20:11)
[2018-05-05] MEDS: Norco 5mg/325mg tab ORAL PRN ×3 (10:16→23:25)
[2018-05-05 12:00] VITALS: BP 118/77
--- NOTE | 2018-05-05 13:44 | NUR ---
HOG BUYER NOTES SPOKE WITH DUKE FROM [employer] MADE AWARE OF PT IN HOUSE STATUS DO TO PLACEMENT. AWAITING FOR SYBIL FROM [facility] TO RETURN CALL. [facility] OR [facility] HAS NO SNF. [facility] AN LT[facility]SUBACUTE PT NOT ACCEPTED THERE. WAITING FOR CALL BACK FROM ADMISSIONS. WILL FOLLOW UP. PT MADE AWARE OF CONTINUED DCP.
--- NOTE | 2018-05-05 15:25 | Consultation ---
History of Present Illness General Date patient seen: May 05, 2018 Time patient seen: 15:24 Present Illness Allergies: Coded Allergies: No Known Allergies (Unverified , 04/30/18) Medication History Scheduled Atorvastatin Calcium* (Lipitor*), 40 MG ORAL BEDTIME, (Reported) Cyclobenzaprine Hcl* (Flexeril*), 10 MG ORAL BID, (Reported) Enoxaparin Sodium (Lovenox), 30 MG SQ Q12HR, (Reported) Furosemide* (Lasix*), 20 MG ORAL DAILY, (Reported) Insulin Aspart (Novolog Flexpen), Unknown Dose SQ AC+HS, (Reported) Metformin Hcl (Metformin Hcl Er), 1,000 MG ORAL BID, (Reported) Oxycodone Hcl (Oxycontin), 20 MG ORAL TID, (Reported) Tramadol Hcl/Acetaminophen (Ultracet Tablet), 2 TAB PO Q4-6 HRS prn, (Reported) [Potassium Er], 1 TAB PO DA, (Reported) Discontinued Medications Naproxen* (Naproxen*), 500 MG ORAL TWICE A DAY, (Reported) Discontinued Reason: MD discontinued med Patient History Healthcare decision maker NOEMÍ DIAZ-FLORENTIN Resuscitation status Full Code Advanced Directive on File Review of Systems Constitutional: Reports: no symptoms Eye: Reports: no symptoms ENT: Reports: no symptoms Cardiovascular: Reports: no symptoms ROS Narrative has knee pain. Physical Exam General Appearance: WD/WN HEENT: normocephalic, atraumatic Neck: non-tender Respiratory/Chest: lungs clear Cardiovascular/Chest: normal rate, regular rhythm Abdomen: non tender, soft Last 24 Hour Vital Signs Date Time Temp Pulse Resp B/P (MAP) Pulse Ox O2 Delivery O2 Flow Rate FiO2 05/05/18 12:00 98.0 80 20 118/77 (91) 98 05/05/18 09:00 Room Air 05/05/18 08:54 98.5 05/05/18 08:00 98.5 100 20 147/86 (106) 95 05/05/18 04:00 98.7 105 17 133/89 (104) 99 05/05/18 00:00 99.3 98 18 126/81 (96) 98 05/04/18 21:00 Room Air 05/04/18 20:00 98.9 88 17 148/85 (106) 100 05/04/18 16:00 99.1 92 19 139/90 (106) 99 Intake and Output 05/04/18 05/05/18 19:00 07:00 Intake Total 1500 ml Balance 1500 ml Intake Oral 1500 ml # Voids 4 2 Height (Feet): 5 Height (Inches): 7.00 Weight (Pounds): 249 Medications Current Medications Medications (Trade) Dose Ordered Sig/Ryan Route PRN Reason Start Time Stop Time Status Last Admin Dose Admin Acetaminophen (Tylenol) 650 mg Q4H PRN ORAL temp>100.2 or headache 05/01/18 13:00 05/31/18 12:59 05/03/18 15:49 Acetaminophen/ Hydrocodone Bitart ([place] 5/325) 2 tab Q4H PRN ORAL pain scores 4-10 05/01/18 13:00 05/08/18 12:59 05/05/18 14:21 Acetaminophen/ Hydrocodone Bitart ([place] 7.5/325) 1 tab Q4H PRN ORAL Mild Pain (Pain Scale 1-3) 05/01/18 13:00 05/08/18 12:59 Celecoxib (CeleBREX) 200 mg DAILY ORAL 05/02/18 09:00 06/01/18 08:59 05/05/18 08:23 Dextrose (Dextrose 50%) 25 ml Q30M PRN IV Hypoglycemia 05/01/18 20:45 05/31/18 20:44 Dextrose (Dextrose 50%) 50 ml Q30M PRN IV Hypoglycemia 05/01/18 20:45 05/31/18 20:44 Docusate Sodium (Colace) 100 mg THREE TIMES A DAY ORAL 05/01/18 13:00 05/31/18 12:59 05/05/18 13:03 Enoxaparin Sodium (Lovenox) 30 mg EVERY 12 HOURS SUBQ 05/01/18 21:00 05/31/18 20:59 05/05/18 08:25 Ferrous Sulfate (Feosol) 325 mg THREE TIMES A DAY ORAL 05/01/18 13:00 05/31/18 12:59 05/05/18 13:03 Hydromorphone HCl (Dilaudid) 1 mg Q4H PRN SUBQ Mild Pain (Pain Scale 1-3) 05/01/18 13:00 05/08/18 12:59 Hydromorphone HCl (Dilaudid) 2 mg Q3H PRN SUBQ Severe Pain (Pain Scale 7-10) 05/01/18 13:00 05/08/18 12:59 05/04/18 14:29 Hydromorphone HCl (Dilaudid) 2 mg Q4H PRN SUBQ Moderate Pain (Pain Scale 4-6) 05/01/18 13:00 05/08/18 12:59 Insulin Aspart (NovoLOG) AC+HS SUBQ 05/01/18 21:00 05/31/18 20:59 05/05/18 13:03 Magnesium Hydroxide (Mom) 30 ml DAILYPRN PRN ORAL Constipation 05/01/18 13:00 05/31/18 12:59 Metformin HCl (Glucophage) 500 mg TIAC ORAL 05/02/18 06:30 06/01/18 06:29 05/05/18 11:45 Ondansetron HCl (Zofran) 4 mg Q6H PRN IVP Nausea & Vomiting 05/01/18 13:00 05/31/18 12:59 05/05/18 12:19 Oxycodone HCl (OxyCONTIN) 20 mg TID ORAL 05/02/18 22:00 05/09/18 21:59 05/05/18 13:04 Temazepam (Restoril) 7.5 mg HSPRN PRN ORAL Insomnia 05/01/18 21:00 05/08/18 20:59 Assessment/Plan Status Narrative S/P TKR PREIOERPATIVE BLOOD LOSS POST OP ANEMIOA PT OT DVT PROPHYALXIS Assessment/Plan DOING WELL AWAIT TRANMFER TO [facility] FOR PT. Sanju Paz MD May 05, 2018 15:25
[2018-05-05] MEDS: Milk of Magnesia 30ml Ud ORAL PRN (15:39)
[2018-05-05 16:00] VITALS: BP 140/81
--- NOTE | 2018-05-05 19:22 | NUR ---
HAND-OFF: Report given to Heaven FLAHERTY. Patient in stable condition.
[2018-05-05 20:00] VITALS: BP 140/91
--- NOTE | 2018-05-05 21:43 | NUR ---
NURSE NOTES: Patient sitting in chair, aaox4. VSS, no shortness of breath. Dilaudid 2 mg subQ given for pain of 8/10 per patient request, prefers over norco. Zofran IVP given for nausea. IV site intact and patent. Dressing clean, dry, intact. Due meds given, needs attended to. Bed low, call light within reach.
[2018-05-06] VITALS: BP 133/76
[2018-05-06 04:00] VITALS: BP 121/76
[2018-05-06] MEDS: NovoLOG Insulin Flexpen SUBQ SCH ×4 (06:36→20:25)
[2018-05-06] MEDS: metFORMIN 500mg tab ORAL SCH ×3 (06:36→16:53)
[2018-05-06] MEDS: Norco 5mg/325mg tab ORAL PRN (06:37)
--- NOTE | 2018-05-06 07:37 | NUR ---
HAND-OFF: Report given to KRYSTINA Rapp. Patient stable.
[2018-05-06] MEDS: Milk of Magnesia 30ml Ud ORAL PRN (07:42)
--- NOTE | 2018-05-06 07:44 | NUR ---
NURSE NOTES: AWAKE/ALERT. PAIN SCALE 8/10. LEFT KNEE DRESSING DRY AND INTACT. WITH GOOD PEDAL PULSE. IN NO DISTRESS.
[2018-05-06 08:00] VITALS: BP 155/91
[2018-05-06] MEDS: oxyCONTIN 20mg tab ORAL SCH ×3 (08:34→17:42)
[2018-05-06] MEDS: celeBREX 200mg Cap **SURGERY PATIENTS ONLY ORAL SCH (08:34)
[2018-05-06] MEDS: Docusate 100mg cap ORAL SCH ×3 (08:34→17:42)
[2018-05-06] MEDS: Enoxaparin 30mg Inj SUBQ SCH ×2 (08:39→20:26)
[2018-05-06 12:00] VITALS: BP 133/78
[2018-05-06 16:00] VITALS: BP 134/80
--- NOTE | 2018-05-06 19:00 | NUR ---
NURSE NOTES: IN NO ACUTE DISTRESS. CONDITION STABLE.
--- NOTE | 2018-05-06 19:20 | NUR ---
HAND-OFF: Report given to Mandi DIXON RN.
[2018-05-06 20:00] VITALS: BP 119/72
--- NOTE | 2018-05-06 22:36 | NUR ---
NURSE NOTES: Patient in bed, aaox4. VSS, no shortness of breath. IV site patent. Dressing c/d/i. Zofran IVP given for c/o nausea. Pain 10/10. Refusing pain medication at this time. Due meds given, needs attended to. Bed low, call light within reach.
[2018-05-07] VITALS: BP 148/82
[2018-05-07 04:00] VITALS: BP 126/74
[2018-05-07] MEDS: metFORMIN 500mg tab ORAL SCH ×3 (06:52→16:32)
[2018-05-07] MEDS: NovoLOG Insulin Flexpen SUBQ SCH ×4 (06:52→21:17)
[2018-05-07] MEDS: Norco 5mg/325mg tab ORAL PRN (06:53)
--- NOTE | 2018-05-07 07:46 | NUR ---
HAND-OFF: Report given to KRYSTINA Elena. patient stable.
--- NOTE | 2018-05-07 07:59 | NUR ---
NURSE NOTES: Patient is up in chair awake and able to verbalize needs. Patient denies pain at this time. Stable with no s/s acute distress. No SOB noted. Patient is comfortable in chair with call light within reach. Will continue to monitor.
[2018-05-07 08:00] VITALS: BP 164/86
--- NOTE | 2018-05-07 09:00 | NUR ---
NURSE NOTES: Left urgent message for Dr. Jorge about magnesium level 1.2. Awaiting response. Patient is stable. Will continue to monitor. Addendum: 05/07/18 at 1353 by MEGAN NARVAEZ RN ERROR.
[2018-05-07] MEDS: oxyCONTIN 20mg tab ORAL SCH ×3 (09:01→17:50)
[2018-05-07] MEDS: Docusate 100mg cap ORAL SCH ×3 (09:01→17:50)
[2018-05-07] MEDS: celeBREX 200mg Cap **SURGERY PATIENTS ONLY ORAL SCH (09:01)
[2018-05-07] MEDS: Enoxaparin 30mg Inj SUBQ SCH ×2 (09:04→21:15)
--- NOTE | 2018-05-07 10:11 | NUR ---
NURSE NOTES: Patient said she has not had a bowel movement since she's been in the hospital. patient refused MOM. Patient is able to pass gas, abdomen is soft and nontender. Patient denies pain or discomfort. Will continue to monitor.
[2018-05-07 12:00] VITALS: BP 124/88
[2018-05-07 16:00] VITALS: BP 146/82
--- NOTE | 2018-05-07 17:16 | NUR ---
EDUCATIONAL ADMINISTRATION TEACHER NOTES SPOKE WITH [facility]OME FROM [facility] PT ACCEPTED TO THE [facility] LOCATION. AUTHORIZATION RECEIVED FROM INSURANCE COMPANY. PT TO TRANSFER IN AM PER [facility]. FAXED DC ORDER AND MEDICATION LIST. PT WILL REQUIRE A PERSCRIPTION FOR PAIN MEDICATION PRIOR TO DC. PT MADE AWARE. SALOME [phone] [facility] [id number] [address] [facility].[place] [id number]
[2018-05-07] MEDS ORDERED: Norco 5mg/325mg tab ORAL PRN (18:00)
--- NOTE | 2018-05-07 19:15 | NUR ---
NURSE NOTES: Report taken from KRYSTINA Elena. Patient awake and alert in bed, A&Ox4. No signs of distress on room air. Patient stated that she was having some pain 4/10, but did not want any pain medications, as it makes her feel nauseas. CPM machine was off and stated that she prefer to ambulate before bed. IV c/d/i. Surgical site covered with 4x4 and leonel hose, c/d/i. Plans for discharge possibly in the morning. Patient did state that she has not been able to eat much due to her nausea. RN offered zofran but patient did not want. Bed in lowest position, call light within reach.
[2018-05-07 20:00] VITALS: BP 137/94
[2018-05-07] MEDS ORDERED: HYDROcodone/Acetamin 7.5/325 tab ORAL PRN (21:00)
[2018-05-08] VITALS: BP 112/70
[2018-05-08 04:00] VITALS: BP 116/71
[2018-05-08] MEDS: metFORMIN 500mg tab ORAL SCH ×2 (06:19→11:40)
[2018-05-08] MEDS: NovoLOG Insulin Flexpen SUBQ SCH ×2 (06:19→11:44)
--- NOTE | 2018-05-08 07:30 | NUR ---
HAND-OFF: Report given to KRYSTINA Rapp. Patient in stable condition. D/C today.
[2018-05-08 08:00] VITALS: BP 141/84
--- NOTE | 2018-05-08 08:03 | NUR ---
NURSE NOTES: AWAKE/ALERT. PAIN SCALE 8/10. LEFT KNEE DRESSING DRY AND INTACT. IN NO DISTRESS.
[2018-05-08] MEDS: Docusate 100mg cap ORAL SCH ×2 (08:45→12:52)
[2018-05-08] MEDS: celeBREX 200mg Cap **SURGERY PATIENTS ONLY ORAL SCH (08:45)
[2018-05-08] MEDS: oxyCONTIN 20mg tab ORAL SCH ×2 (08:46→12:54)
[2018-05-08] MEDS: Enoxaparin 30mg Inj SUBQ SCH (08:49)
--- NOTE | 2018-05-08 09:17 | Orthopedic Progress Note ---
Orthopedic - Progress Note Subjective Additional Comments Patient is doing much better. Still some nausea from pain meds. Patient has been stable to discharge to rehab as of Monday. Insurance and placement issues kept her here. Objective Last 24 Hour Vital Signs Date Time Temp Pulse Resp B/P (MAP) Pulse Ox O2 Delivery O2 Flow Rate FiO2 05/08/18 08:00 97.6 80 20 141/84 (103) 97 05/08/18 04:00 98.3 92 16 116/71 (86) 98 05/08/18 00:00 98.1 95 16 112/70 (84) 99 05/07/18 21:00 Room Air 05/07/18 20:00 98.1 94 16 137/94 (108) 96 05/07/18 16:00 98.2 88 18 146/82 (103) 98 05/07/18 12:00 97.9 89 18 124/88 (100) 100 Intake and Output 05/07/18 05/08/18 19:00 07:00 Intake Total 720 ml 360 ml Balance 720 ml 360 ml Intake Oral 720 ml 360 ml # Voids 5 2 Wound: clean, dry, intact Drains: none Neuro Status: normal Vascular Status: normal Assessment Post-op Diagnosis POD#7 s/p Left TKA Plan Plan: PT Additional Comments discharge to rehab today. Patient has been stable medically for discharge since Monday. patient stayed at the hospital due to insurance issues and placement issues. Dragan Rogers MD May 08, 2018 09:17
--- NOTE | 2018-05-08 10:51 | NUR ---
CASE MANAGERNOTES PT ACCEPTED TO [facility], ROOM 3. [facility] TO SET UP TRANSPORTATION WITH ETA OF 1600. PT MADE AWARE AND IS IN AGREEMENT WITH DCP @ THIS TIME. NURSE TO GIVE REPORT TO [phone]
[2018-05-08 12:00] VITALS: BP 158/87
--- NOTE | 2018-05-08 14:22 | Diagnostic Imaging Report ---
APPROVED REPORT CPT Code: 89493 Present Symptoms Lower Extremity Pain: Left Comments: Post Op BILATERAL: Imaging reveals a patent deep venous system bilaterally. There is no evidence of thrombus within the femoral, popliteal or tibial segments. The greater saphenous veins are also within normal limits. Doppler indicates normal spontaneous flow within these segments.
[2018-05-08 16:00] VITALS: BP 143/82
--- NOTE | 2018-05-08 16:00 | NUR ---
NURSE NOTES: DISCHARGED TO [facility] VIA AMBULANCE IN STABLE CONDITION.DC INSTRUCTIONS GIVEN.REPORT GIVEN TO TARIQ
== END 2018-05-08 16:00 | DRG 470 ==
LOC: SDSOVERFLO 05:22 → 3E 12:19
PROC: 0SRD0J9 Replacement of Left Knee Joint with Synthetic Substitute, Cemented, Open Approach (ICD-10-PCS; principal; 2018-05-01 07:00)
DX: M17.12 Unilateral primary osteoarthritis, left knee (principal); E11.9 Type 2 diabetes mellitus without complications; I10 Essential (primary) hypertension; E78.5 Hyperlipidemia, unspecified; R11.0 Nausea; D50.0 Iron deficiency anemia secondary to blood loss (chronic)
CPT/HCPCS: 36415; 71045; 81001; 82962; 85025; 86850; 86900; 86901; 86920; 87040; 87081; 87086; 87181; 93970; 94003; 94150; J1815; J2250; J2405